=== PATIENT | female | born 1945 | race Caucasian/White ===

== ENCOUNTER 2019-02-27 18:13 | Emergency (ER) | payer SELFPAY ==
[~2019-02-27] VITALS: Ht 154.9 cm; Wt 90.7 kg
[2019-02-27 18:15] VITALS: BP 118/64
== END 2019-02-27 18:37 | disposition short-term general hospital (02) ==
LOC: EDBD 18:13 → ER 18:13
DX: S01.01XA Laceration without foreign body of scalp, initial encounter (principal); S16.1XXA Strain of muscle, fascia and tendon at neck level, initial encounter; Y08.89XA Assault by other specified means, initial encounter; Y93.89 Activity, other specified; Y99.8 Other external cause status; Y92.89 Other specified places as the place of occurrence of the external cause